=== PATIENT | female | born 1945 | race Caucasian/White ===

== ENCOUNTER 2024-07-14 08:23 | Emergency (ER) | payer MEDICARE, SELFPAY ==
[2024-07-14 08:25] VITALS: BP 172/83; BMI 15.8
[2024-07-14 08:26] VITALS: BP 172/83
[2024-07-14 08:48] LABS: % Basophils 0.6 % (0-2); % Eosinophils 0.5 % (0-6); % Immature Granulocytes 0.7 % (0-0.5); % Lymphocytes 16.4 % (20.5-51.1); % Monocytes 9.6 % (1.7-9.3); % Neutrophils 72.2 % (42.2-75.2); Absolute Basophils 0.1 10^3/uL (0-0.2); Absolute Immature Granulocytes 0.1 10^3/uL (0-0.05); Absolute Lymphocytes 1.4 10^3/uL (1.2-3.4); Absolute Monocytes 0.8 10^3/uL (0.1-0.6); Absolute Neutrophils 6.3 10^3/uL (1.4-6.5); Hematocrit 34.7 % (37.0-47.0); Hemoglobin 11.9 g/dL (12.0-16.0); Mean Corp Hgb Conc. 34.3 g/dL (33.0-37.0); Mean Corpuscular Hgb 34.5 pg (27.0-31.0); Mean Corpuscular Volume 100.6 fL (81.0-99.0); Nucleated Red Blood Cells % 0 %; Platelet Count 179 10^3/uL (130-400); Red Blood Cell Count 3.45 10^6/uL (4.20-5.40); Red Cell Dist. Width 11.9 % (11.5-14.5); White Blood Cell Count 8.7 10^3/uL (4.8-10.8)
--- NOTE | 2024-07-14 08:56 | ED.GENMED ---
History of Present Illness
General
Chief Complaint: Back Pain
Source: patient and spouse
Time Seen by Provider: 07/14/24 08:32
History of Present Illness
History of Present Illness:
This patient is a 79-year-old female who had several drinks of alcohol last night. At around 11:30 PM, while getting ready for bed in the bathroom, who was just outside heard a 'thud'. When he went in he found her on the floor, awake and
alert without loss of consciousness. She did not have any complaints at that time. He helped her to bed and she fell asleep. Patient states that she does not particular remember falling or having any symptoms prior to this. However, when she
woke this morning, she notes pain across her mid back with any movement particularly taking a deep breath. She describes the pain as 'behind my ribs'. She denies dyspnea, chest pain, neck pain, headache, photophobia, numbness, tingling, focal
weakness, abdominal pain, new extremity pain, or other complaints.
Past History
Past History
ED Past Medical History: HTN and Other (Osteoporosis)
ED Past Surgical History: Orthopedic
Social History
Tobacco: Non-smoker
Alcohol: Occasional
Drug: None
Personal:
Living: with family
Phy Exam
Physical Exam
Physical Exam:
GENERAL: Alert , in no apparent distress
EYE: pupils equal and reactive, EOMI, no photophobia
NECK: Supple, no significant adenopathy, no midline tenderness.
ENT: o/p clr, mm slightly dry, no signs of head or facial injury noted on exam, no jameson, no raccoon
CARDIAC: Regular rate and rhythm .
LUNGS: Clear breath sounds bilaterally, no acute respiratory distress, no wheezes/rales/rhonchi
ABDOMEN: Soft, without focal tenderness, no r/g
NEUROLOGICAL: Alert and oriented, no focal neuro deficits
SKIN: Warm and dry, skin intact.
MUSCULOSKELETAL: No edema, well perfused.
PSYCH: Normal and appropriate interaction.
BACK: no ttp noted throughout palpation of entire spine. No bruising/redness/crepitus. There is ttp noted across inferior bilat post costal area.
Course
Orders/Labs/Results
Orders:
Orders
07/14/24 08:27
Electrocardiogram (*1) Urgent
Reason for Study: Syncope
EKG- Treatment ONCE
07/14/24 08:37
Basic Metabolic Panel Urgent
Complete Blood Count/With Diff Urgent
07/14/24 08:49
0.9% Sodium Chloride 500 ml [Nss] 500 ml IV BOLUS
Morphine Sulfate 4 mg IV NOW STA
Ribs, Galdino 4 View W/PA Chest [CR Ribs-galdino 4 Vw W/pa Chest] Urgent
Comment:
Reason For Exam: fall, post lower rib pain bilat
07/14/24 09:58
Troponin I Urgent
Abnormal Lab Results
07/14/24
08:37
RBC 3.45 L 10^6/uL
(4.20-5.40)
Hgb 11.9 L g/dL
(12.0-16.0)
Hct 34.7 L %
(37.0-47.0)
MCV 100.6 H fL
(81.0-99.0)
MCH 34.5 H pg
(27.0-31.0)
Abs Immat Gran (auto) 0.1 H 10^3/uL
(0-0.05)
Absolute Monos (auto) 0.8 H 10^3/uL
(0.1-0.6)
Immature Gran % 0.7 H %
(0-0.5)
Lymphocytes % 16.4 L %
(20.5-51.1)
Monocytes % 9.6 H %
(1.7-9.3)
BUN 20 H mg/dl
(7-17)
07/14/24 08:37
07/14/24 08:37
Vital Signs
Initial and Last Documented VS:
Initial Vital Signs
Temp Pulse Resp BP Pulse Ox
98.1 F 89 16 172/83 92
07/14/24 08:25 07/14/24 08:25 07/14/24 08:25 07/14/24 08:25 07/14/24 08:25
Last Documented Vital Signs
Temp Pulse Resp BP Pulse Ox
98.1 F 95 21 137/62 92
07/14/24 08:25 07/14/24 10:15 07/14/24 10:15 07/14/24 10:00 07/14/24 10:00
*Critical Care Note
Total Time (30-74mins, 75-104mins- exclusive of procedures): Not Applicable
Update Note
Update Note:
Patient presents to the Emergency Department with back pain status post fall____
Number and Complexity of Problems Addressed at the Encounter
� Chronic conditions affecting care:
� Acute Exacerbation and/or Progression of Chronic Illness:
� Differential Diagnosis includes: But not limited to thoracic vertebral body fracture, rib fracture, muscle strain, etc. etc.
Amount and/or Complexity of Data to be Reviewed and Analyzed
� I performed an independent evaluation of and my interpretation is:
EKG: Read by me normal sinus rhythm, normal rate, normal axis, no acute ischemia
CT:
Xrays:No displaced bilateral rib fractures. There are fractures of the posterior 9th [id number] ribs on the right which appear more acute in nature. The posterior left third, fourth, fifth and eighth rib fractures appear more
subacute/chronic. No pleural effusion or pneumothorax.
There is a severe compression deformity of the T5 vertebral body and a mild compression deformity of the T10 vertebral body. These are consistent with age-indeterminate compression fractures. If there is concern for acute fracture an MRI may be
considered for further evaluation.
Laboratory Studies:mild anemia
Other:
� Review of other/old records reveals:
� Clinical information was obtained by an independent historian: who is bedside
� Prescriptions/Medications Considered but not given:
� Further testing considered but not performed:
Risk of Complications and/or Morbidity or Mortality of Patient Management
� Social determinants of health affecting care:
� Discussion with other providers (PCP, Hospitalists, Consultants, etc):
� Escalation of care including admission/observation vs risk of discharge considered: Although patient does not remember circumstances of the fall last night, states very competently that he believes is related to her
alcohol intake. He also is confident that she did not have loss of consciousness. Patient does not have signs or symptoms to suggest intracranial injury/neck fracture and there are no signs of head or facial injury on exam. Pain that patient
presents with is very reproducible with palpation. I do not clinically suspect that her 'back pain' caused her fall but rather much more likely to be a consequence of her fall, i.e. I do not suspect ACS or aortic dissection given history and
physical.
11:03 AM Case discussed with patient and given copy of x-ray report, aware of need for follow-up. Pulse ox 93% on room air, pain well-controlled. Will discharge with prescription for pain medication, Percocet which she has taken in the
past. Advised regarding precautions in this medication, reasons return to the ER, importance of deep breathing, etc.
ED Attending Note
-
Portions of this chart may have been created with voice recognition software.� Occasional wrong word or��sound alike� substitutions may have occurred due to the inherent limitations of voice recognition software.
Discharge Plan
Departure
Patient Disposition: Home (Routine Discharge)
Date of Disposition: 07/14/24
Time of Disposition: 11:00
Patient with high blood pressure during this ER visit?: Yes
Condition: Good
Discharge Problem:
Closed rib fracture, Compression fracture
Instructions: Vertebral compression fracture, BLOOD PRESSURE, Rib Fracture
Prescriptions:
New
oxycodone-acetaminophen [Percocet] 5-325 mg tablet
1 tab PO Q4HPRN PRN (Reason: pain) Qty: 17 0RF
Referrals:
UNKNOWN - PT DOES,NOT KNOW [Family Provider] -
Activity Restrictions/Additional Instructions:
YOU HAVE ABNORMALITIES OF YOUR LABS AND X-RAY THAT NEED CLOSE FOLLOW-UP. PLEASE BRING THESE RESULTS THAT I PRINTED OUT FOR YOU TO YOUR DOCTOR AND CLOSE FOLLOW-UP. IF YOU DEVELOP INCREASING OR NEW PAIN, TROUBLE BREATHING, ABDOMINAL PAIN, VOMITING,
NUMBNESS, TINGLING, CHEST PAIN, SEVERE HEADACHE, DIZZINESS, OR OTHER WORRISOME SIGNS, PLEASE RETURN TO THE ER IMMEDIATELY.
Interventions
Interventions:
*Risk Screen - Suicide Last Done: 07/14/24 08:25
*General Assessment Last Done: 07/14/24 08:25
*Neglect/Abuse Screening Last Done: 07/14/24 08:25
*ED- Fall Risk Assessment Last Done: 07/14/24 08:25
ED-Musculoskeletal Assessment Last Done: 07/14/24 08:46
Discharge Date and Time
Print Language: MALAGASY
[2024-07-14 08:59] LABS: Blood Urea Nitrogen 20 mg/dl (7-17); Calcium 9.7 mg/dl (8.4-10.2); Carbon Dioxide 27 mmol/L (22-30); Chloride 99 mmol/L (98-107); Estimated Creatinine Clearance 38 ml/min; Glucose 75 mg/dl (70-99); Sodium 135 mmol/L (135-145); eGFR > 60.00
[2024-07-14] MEDS: MORPHINE SULFATE 4 MG IV (09:53)
[2024-07-14] MEDS: NSS 500 IV (09:53)
[2024-07-14 10:00] VITALS: BP 137/62
[2024-07-14 10:30] LABS: Troponin I < 0.012 ng/ml
[2024-07-14 11:00] VITALS: BP 101/50
== END 2024-07-14 11:20 | disposition home or self-care (01) ==
LOC: EMR 08:23
PROVIDERS: EMERGENCY PHYSICIAN Emergency Medicine
DX: S22.31XA Fracture of one rib, right side, initial encounter for closed fracture (principal); W19.XXXA Unspecified fall, initial encounter; I10 Essential (primary) hypertension; M81.0 Age-related osteoporosis without current pathological fracture
CPT/HCPCS: 99283; 96374; 71111; 80048; 84484; 85025; 93005